=== PATIENT | male | born 1975 | race Caucasian/White ===

== ENCOUNTER 2025-07-02 13:27 | Emergency (ER) | payer MEDICAID ==
[~2025-07-02] VITALS: Ht 165.1 cm; Wt 72.0 kg
[2025-07-02 13:43] VITALS: O2SAT 100
[2025-07-02] MEDS ORDERED: ACET-2708 MT (16:12)
[2025-07-02] MEDS ORDERED: IBUP-2028 MT (16:28)
[2025-07-02 17:05] VITALS: BP 128/72; PULSE 72; RESP 16; TEMP 37; O2SAT 100
== END 2025-07-02 17:06 | disposition home or self-care (01) ==
LOC: ER 15:00
DX: M79.662 Pain in left lower leg (principal); I10 Essential (primary) hypertension
CPT/HCPCS: 73552; 73590; 73600; 99284